=== PATIENT | male | born 1975 | race Caucasian/White ===

== ENCOUNTER → 2022-11-16 17:12 | Outpatient (CLI) | payer OTHER, SELFPAY ==
[2022-11-16 18:58] LABS: Influenza A - CEPHEID Flu A NEGATIVE (NEGATIVE); Influenza B - CEPHEID Flu B NEGATIVE (NEGATIVE); Respiratory Syncytial Virus Negative (Negative)
[2022-11-16 19:02] LABS: COVID-19 CEPHEID 4-PLEX PCR Negative (Negative)
== END ==
PROVIDERS: Visit Provider Student in an Organized Health Care Education/Training Program
DX: R05.9 Cough, unspecified (principal)
CPT/HCPCS: 0241U

== ENCOUNTER → 2022-11-16 17:22 | Outpatient (CLI) | payer OTHER, SELFPAY ==
--- NOTE | 2022-11-16 17:25 | DI.RAD.S_ITS ---
PROCEDURE: XR CHEST 2V INDICATIONS: chronic cough 1 yr TECHNIQUE: 2 views of the chest were acquired. COMPARISON: None. FINDINGS: Surgical changes and devices: None. Lungs and pleura: Lungs are clear. No pleural effusions or pneumothorax. Mediastinum: Mediastinal contours are normal. Heart size is normal. Bones and chest wall: No suspicious bony abnormalities. Soft tissues appear unremarkable. IMPRESSION: No acute cardiopulmonary findings Approved by: Bc Hopkins M.D. on 11/16/2022 at 17:25
== END ==
PROVIDERS: Referring Provider Student in an Organized Health Care Education/Training Program; Visit Provider Student in an Organized Health Care Education/Training Program
DX: R05.8 Other specified cough (principal)
CPT/HCPCS: 0241U; 71046

== ENCOUNTER 2025-05-29 15:58 | Emergency (ER) | payer OTHER, SELFPAY ==
[2025-05-29] VITALS (8 sets, daily range): BP systolic 126–174; BP diastolic 72–104; PULSE 84–107; RESP 16–20; O2SAT 92–96; BMI 39.5
--- NOTE | 2025-05-29 17:46 | EKG_ITS ---
[address] [address] Test Date: 2025-05-29 Pat Name: Ajay Acevedo Department: Room: Gender: Male [place] Operator: ARMANDO : 1975 Requested By: Order Number: [id number] Reading MD: Barrett Hutton Measurements Intervals [place]ougar Rate: 110 P: 12 FL: 140 QRS: -39 QRSD: 106 T: 69 QT: 316 QTc: 427 Interpretive Statements Sinus tachycardia Left axis deviation Left ventricular hypertrophy with repolarization abnormality ( R in aVL , Durand product ) Electronically Signed On 05-30-2025 17:27:35 PDT by Barrett Hutton
--- NOTE | 2025-05-29 18:03 | ED.BACK ---
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 He can not recall a specific injury but it seemed to worsen last he attempted to work but the pain worsened with movement. He is denying any radiation through to the chest, no neck pain, no radiation to his upper extremities. He has no history of any fractures or acute back problems except for the occasional lower back strain. He states he can reproduce the pain if he bends from [id number] or if he raises his arms above his head. If he turns his neck to either side he feels the pain as described. He describes it as sharp it does improve with ice no change with heat he states Tylenol ?takes the edge off? he took 1500 mg at 1:00 p.m. today. He has been doing this twice daily. He also took meloxicam 15 mg at 3:00 p.m. which she takes daily for arthritis in his knees. He denies any nausea, vomiting, difficulty breathing, chest pain, abdominal pain, no disruption during sleep, he is able to lay flat that is the most comfortable position. History is significant for type 2 diabetes, he has been on weekly Mounjaro for about 7 months and reports 45 lb weight loss with this medication. Per his Gracie, he was recently diagnosed with Bardet-Biedl Syndrome. Family history: Mother of kidney cancer. Daughter has some type of genetic kidney issue. He did a Cologuard this year and states it was normal. He does have an appointment with his doctor tomorrow Dr. Gale but states he could not wait until then. He admits to having white coat syndrome, does not like needles, states his heart rate and blood pressure usually elevated at medical facilities or doctor's offices. All other systems are reviewed and are negative. Related Data Previous Rx's ?Medication ?Instructions ?Recorded ciprofloxacin HCl 500 mg tablet 500 mg PO BID ##20 03/29/13 (Cipro) benzonatate 100 mg capsule 100 mg PO TID PRN cough 10 days 11/16/22 #30 caps Allergies Allergy/AdvReac Type Severity Reaction Status Date / Time No Known Drug Allergies Allergy Verified 05/29/25 16:17 Review of Systems <Casie Riley PA-C - Last Filed: 05/29/25 20:10> Review of Systems Narrative: All other systems are reviewed and are negative. Patient History <Casie Riley PA-C - Last Filed: 05/29/25 20:10> Social History Smoking Status: Never smoker Smoking Status: Never smoker Exam <Casie Riley PA-C - Last Filed: 05/29/25 20:10> Initial Vital Signs Initial Vital Signs: Vital Signs Pulse Rate 107 H 05/29/25 16:16 Respiratory Rate 16 05/29/25 16:16 Blood Pressure 159/104 H 05/29/25 16:16 Pulse Oximetry 96 05/29/25 16:16 Oxygen Delivery Method Room Air 05/29/25 16:16 Vital signs reviewed and are normal except for elevated blood pressure reading and slight tachycardia, this is rechecked his heart rate has come down to 82 radially, blood pressure also improved. Const General: cooperative, comfortable, well developed, well groomed and No acute distress Other: Smiling, seated, no distress. [facility] Head: normal to inspection, normocephalic and atraumatic Nose: external nose normal Face and sinus: normal facial exam and face symmetric Mouth: oral mucosae normal, lip normal and tongue normal Teeth and gingiva: dentition normal and gingiva normal Throat: posterior oropharynx normal Eyes General: Yes appearance normal, both eyes and all related structures Sclera: sclerae normal Neck Neck: normal visual inspection, full ROM, no meningeal signs, trachea midline and supple Lymphatic: No lymphadenopathy Other: Lateral rotation of the neck reproduces his pain in his thoracic region. Chest Chest: normal inspection of the chest and other (Barrel hoop test is negative.) Resp Effort & Inspection: normal respiratory effort and able to speak in complete sentences Auscultation: clear to auscultation bilaterally, no rales, no rhonchi and no wheezes Cardio Rate: regular rate Rhythm: regular rhythm GI Inspection: normal to inspection, no abdominal wall ecchymosis, no edema, non-distended, large pannus and obesity Percussion: normal to percussion Auscultation: normal bowel sounds Back/Spine/Pelvis Back: normal to inspection, No CVA tenderness, No ecchymosis, No erythema and No mass Thoracic/Lumbar Spine: thoraco-lumbar ROM normal (Reproducible pain with lateral bending and rotation.) Other: No focal bony midline tenderness or interspace tenderness of the cervical, thoracic, lumbar and sacral spine. He has tenderness in the paraspinous tissues of the thoracic region. Mildly tender upper trapezium with a couple of knots noted bilaterally, slight elevation left greater than right. Rhomboids are without tenderness. Pain with chest retraction and protraction to his mid- thoracic region without guarding. Skin General: no rashes or lesions noted, elasticity normal, turgor normal, No ecchymosis and No erythema Neuro General: patient alert, patient awake and patient oriented x3 DTR's: Rt Triceps: 1+, Lt Triceps: 1+, Rt Biceps: 1+ and Lt Biceps: 1+ Extrem Other: Full active shoulder ROM, pain is reproduced to his thoracic region with elevation and abduction against resistance. No focal deficits. <Shena Lucia MD - Last Filed: 05/29/25 23:57> Initial Vital Signs Initial Vital Signs: Vital Signs Pulse Rate 107 H 05/29/25 16:16 Respiratory Rate 16 05/29/25 16:16 Blood Pressure 159/104 H 05/29/25 16:16 Pulse Oximetry 96 05/29/25 16:16 Oxygen Delivery Method Room Air 05/29/25 16:16 Course <Casie Riley PA-C - Last Filed: 05/29/25 20:10> Orders Ordered: ED Orders 05/29/25 17:46 EKG-12 Lead Stat 05/29/25 18:00 Complete Blood Count AUTO DIFF Stat Comprehensive Metabolic Panel Stat Lipase Stat Magnesium Stat NT-proBNP (BNP-Adult 18+) Stat PTT Partial Thromboplastin Agus Stat Prothrombin Time INR Stat Troponin & CK Cardiac Panel Stat 05/29/25 18:32 CT chest abd pel w con Stat 05/29/25 21:48 Immunofixation, Serum Stat LDH [Lactate Dehydrogenase] Stat PSA [Prostate Specific Antigen] Stat Phosphorous Stat Protein Electrophoresis, Serum Stat Serum Free Light Chains [Free [place], LightChain SERUM] Stat Calcitonin [place] (Calcitonin,[place], Nasal [place]) 1 sprays NASAL DAILY ALISE Discontinued Medications Dexamethasone (Dexamethasone 10 Mg/Ml Vial) 10 mg IV NOW ONE Stop: 05/29/25 21:16 Last Admin: 05/29/25 21:49 Dose: 10 mg Hydromorphone HCl (Hydromorphone Hcl 0.5 Mg/0.5 Ml Syringe) 0.5 mg IV NOW ONE Stop: 05/29/25 19:33 Last Admin: 05/29/25 19:53 Dose: 0.5 mg Documented By: SARTHAK Hydromorphone HCl (Hydromorphone 1 Mg/Ml Syringe) 1 mg IV NOW ONE Stop: 05/29/25 20:35 Last Admin: 05/29/25 20:38 Dose: 1 mg Documented By: SARTHAK Hydromorphone HCl (Hydromorphone 1 Mg/Ml Syringe) 1 mg IV PRN ONE Stop: 05/29/25 23:12 Sodium Chloride (Normal Saline 0.9%) 1,000 mls @ 1,000 mls/hr IV BOLUS ONE Stop: 05/29/25 19:31 Last Infusion: 05/29/25 20:14 Dose: Infused Documented By: Admin: 05/29/25 18:52 Dose: 1,000 mls/hr Documented By: Furosemide 60 mg/ Sodium (Chloride) 56 mls @ 112 mls/hr IV NOW ONE Stop: 05/29/25 18:33 Last Infusion: 05/29/25 20:14 Dose: Infused Documented By: Admin: 05/29/25 18:52 Dose: 112 mls/hr Documented By: Zoledronic Acid 5 mg/ Sodium (Chloride) 106.25 mls @ 425 mls/hr IV NOW ONE Stop: 05/29/25 21:16 Last Titration: 05/29/25 23:11 Dose: 0 mls/hr Oxycodone/Acetaminophen (Oxycodone/Acetaminophen 5/325 Tablet) 2 tab PO NOW ONE Stop: 05/29/25 22:31 Last Admin: 05/29/25 22:44 Dose: 2 tab Oxycodone/Acetaminophen (Oxycodone/Acetaminophen 5/325 Tablet) 2 tab PO PRN ONE Stop: 05/29/25 23:12 Consultations Consultation #1: Discuss this patient with attending physician Dr. Lucia. Concern is for bony pathology due to his elevated calcium such as multiple myeloma. CT scan of the chest, abdomen and pelvis were ordered. Intravenous hydration with 1 L of normal saline with 60 mg IV Lasix. Dilaudid 0.5mg IV for pain given. Transfer of care to Dr. Lucia. Vital Signs Vital signs: Vital Signs - 8 hr 05/29/25 16:16 05/29/25 20:20 05/29/25 21:13 Pulse Rate 107 H 91 H 89 Respiratory Rate 16 18 Blood Pressure 159/104 H 127/72 Pulse Oximetry 96 93 Oxygen Delivery Method Room Air 05/29/25 21:25 05/29/25 21:25 05/29/25 21:30 Pulse Rate 84 101 H Respiratory Rate Blood Pressure 126/80 Pulse Oximetry 93 95 Oxygen Delivery Method 05/29/25 21:30 05/29/25 22:00 05/29/25 22:00 Pulse Rate 105 H Respiratory Rate 20 Blood Pressure 158/99 H 174/93 H Pulse Oximetry 95 Oxygen Delivery Method 05/29/25 22:30 05/29/25 22:30 Pulse Rate 98 H Respiratory Rate 20 Blood Pressure 153/89 H Pulse Oximetry 94 Oxygen Delivery Method Room Air <Shena Lucia MD - Last Filed: 05/29/25 23:57> Orders Ordered: ED Orders 05/29/25 17:46 EKG-12 Lead Stat 05/29/25 18:00 Complete Blood Count AUTO DIFF Stat Comprehensive Metabolic Panel Stat Lipase Stat Magnesium Stat NT-proBNP (BNP-Adult 18+) Stat PTT Partial Thromboplastin Agus Stat Prothrombin Time INR Stat Troponin & CK Cardiac Panel Stat 05/29/25 18:32 CT chest abd pel w con Stat 05/29/25 21:48 Immunofixation, Serum Stat LDH [Lactate Dehydrogenase] Stat PSA [Prostate Specific Antigen] Stat Phosphorous Stat Protein Electrophoresis, Serum Stat Serum Free Light Chains [Free [place], LightChain SERUM] Stat Calcitonin [place] (Calcitonin,[place], Nasal [place]) 1 sprays NASAL DAILY ALISE Discontinued Medications Dexamethasone (Dexamethasone 10 Mg/Ml Vial) 10 mg IV NOW ONE Stop: 05/29/25 21:16 Last Admin: 05/29/25 21:49 Dose: 10 mg Hydromorphone HCl (Hydromorphone Hcl 0.5 Mg/0.5 Ml Syringe) 0.5 mg IV NOW ONE Stop: 05/29/25 19:33 Last Admin: 05/29/25 19:53 Dose: 0.5 mg Documented By: SARTHAK Hydromorphone HCl (Hydromorphone 1 Mg/Ml Syringe) 1 mg IV NOW ONE Stop: 05/29/25 20:35 Last Admin: 05/29/25 20:38 Dose: 1 mg Documented By: SARTHAK Hydromorphone HCl (Hydromorphone 1 Mg/Ml Syringe) 1 mg IV PRN ONE Stop: 05/29/25 23:12 Sodium Chloride (Normal Saline 0.9%) 1,000 mls @ 1,000 mls/hr IV BOLUS ONE Stop: 05/29/25 19:31 Last Infusion: 05/29/25 20:14 Dose: Infused Documented By: Admin: 05/29/25 18:52 Dose: 1,000 mls/hr Documented By: Furosemide 60 mg/ Sodium (Chloride) 56 mls @ 112 mls/hr IV NOW ONE Stop: 05/29/25 18:33 Last Infusion: 05/29/25 20:14 Dose: Infused Documented By: Admin: 05/29/25 18:52 Dose: 112 mls/hr Documented By: Zoledronic Acid 5 mg/ Sodium (Chloride) 106.25 mls @ 425 mls/hr IV NOW ONE Stop: 05/29/25 21:16 Last Titration: 05/29/25 23:11 Dose: 0 mls/hr Oxycodone/Acetaminophen (Oxycodone/Acetaminophen 5/325 Tablet) 2 tab PO NOW ONE Stop: 05/29/25 22:31 Last Admin: 05/29/25 22:44 Dose: 2 tab Oxycodone/Acetaminophen (Oxycodone/Acetaminophen 5/325 Tablet) 2 tab PO PRN ONE Stop: 05/29/25 23:12 Vital Signs Vital signs: Vital Signs - 8 hr 05/29/25 16:16 05/29/25 20:20 05/29/25 21:13 Pulse Rate 107 H 91 H 89 Respiratory Rate 16 18 Blood Pressure 159/104 H 127/72 Pulse Oximetry 96 93 Oxygen Delivery Method Room Air 05/29/25 21:25 05/29/25 21:25 05/29/25 21:30 Pulse Rate 84 101 H Respiratory Rate Blood Pressure 126/80 Pulse Oximetry 93 95 Oxygen Delivery Method 05/29/25 21:30 05/29/25 22:00 05/29/25 22:00 Pulse Rate 105 H Respiratory Rate 20 Blood Pressure 158/99 H 174/93 H Pulse Oximetry 95 Oxygen Delivery Method 05/29/25 22:30 05/29/25 22:30 Pulse Rate 98 H Respiratory Rate 20 Blood Pressure 153/89 H Pulse Oximetry 94 Oxygen Delivery Method Room Air MDM - Back Pain/Injury <Casie Riley PA-C - Last Filed: 05/29/25 20:10> Lab Data Lab results narrative: Calcium elevated 16.7, WBC 11.4, BNP 2180, AST 62, Creatinine 1.51 GFR 56. 05/29/25 18:00 05/29/25 18:00 Labs: Lab Results 05/29/25 05/29/25 Range/Units 18:00 21:48 WBC 11.4 H (4.5-11.0) X10^3/uL RBC 5.47 (4.5-5.9) X10^6/uL Hgb 17.4 (13.5-17.5) g/dL Hct 51.1 (41-53) % MCV 93.4 (80-100) fL MCH 31.7 (26-34) PG MCHC 34.0 (30-36) % RDW 12.8 (11.6-14.8) % Plt Count 210 (150-400) X10^3/uL Neut % (Auto) 74.1 (50-75) % Lymph % (Auto) 16.6 L (25-40) % [place] % (Auto) 8.3 (3-14) % Eos % (Auto) 0.3 L (2-4) % Baso % (Auto) 0.7 (0-2) % Neut # (Auto) 8400 H (9341-1008) /uL Lymph # (Auto) 1900 (0542-5908) /uL [place] # (Auto) 900 (0-900) /uL Eos # (Auto) 0 (0-450) /uL Baso # (Auto) 100 (0-100) /uL PT 12.0 (9.4-12.5) SECONDS INR 1.1 (0.9-1.3) APTT 29 (25.1-36.5) SECONDS Sodium 134 L (137-145) mmol/L Potassium 3.9 (3.4-5.1) mmol/L Chloride 96 L (98-107) mmol/L Carbon Dioxide 29 (22-32) mmol/L BUN 26 H (9-20) mg/dL Creatinine 1.51 H (0.66-1.25) mg/dL Estimated GFR 56 L (>60) mL/min BUN/Creatinine Ratio 17.2 (6-22) Glucose 123 H (70-99) mg/dL Calcium 16.7 H* (8.4-10.2) mg/dL Phosphorus 4.3 (2.5-4.5) mg/dL Magnesium 1.6 (1.6-2.3) mg/dL Total Bilirubin 0.9 (0.2-1.3) mg/dL AST 62 H (17-59) IU/L ALT 45 (<50) IU/L Alkaline Phosphatase 82 (38-126) U/L Lactate Dehydrogenase 247 H (120-246) U/L Total Creatine Kinase 44 L (55-170) U/L Troponin I 0.028 (0.01-0.034) ng/mL NT-Pro-B Natriuret Pep 2180 H (<125) pg/mL Total Protein 9.3 H (6.3-8.2) g/dL Albumin 4.7 (3.5-5.0) g/dL Globulin 4.6 H (1.7-4.1) g/dL Albumin/Globulin Ratio 1.0 (1.0-2.8) Lipase 72 (23-300) U/L Prostate Specific Ag 1.81 (0.10-4.00) ng/mL Imaging Data CT scan chest, abd/pelvis: My Impression: Deferred to radiologist's interpretation below. Radiologist's Impression: PROCEDURE: CT CHEST ABD PEL W CON INDICATIONS: T6 pain, no trauma, elevated Calcium 16.7, r/o myeloma TECHNIQUE: After the administration of intravenous contrast, 5 mm thick sections acquired from the lung apices to the symphysis. 5 mm coronal and sagittal reformats were performed, with additional 7 mm MIP reformats through the lungs. For radiation dose reduction, the following was used: automated exposure control, adjustment of mA and/or kV according to patient size. COMPARISON: None. FINDINGS: Image quality: Excellent. CHEST: Lower Neck: No enlarged lymph nodes. Thyroid: No thyroid nodules which require sonographic follow up, per consensus guidelines. Axillae: No enlarged lymph nodes. Chest Wall: Unremarkable. Lungs and Pleura: No pneumothorax or pleural effusions. Left lower lobe nodule measuring 5 mm (3/213). Heart: Heart size is normal. No pericardial effusion. Thoracic Vessels: The aorta and pulmonary arteries demonstrate normal size. Mediastinum and [place]: No enlarged lymph nodes. Esophagus: No wall thickening. No hiatal hernia. ABDOMEN: Liver: No solid mass. Hepatic steatosis. Gallbladder: No radiopaque gallstones or wall thickening. Biliary ducts: No biliary dilation. Pancreas: No ductal dilation. Spleen: Size is within normal limits. Adrenal Glands: No adrenal nodules. Kidneys and Ureters: No hydronephrosis. No solid mass. No complex renal cystic lesion which requires follow up. Stomach and Bowel: Normal colonic caliber, without significant wall thickening. Diverticulosis without evidence of acute diverticulitis. Peritoneum: No abnormal intraperitoneal fluid. No free air. Ventral Wall: Moderate fat containing umbilical hernia. Abdominal Nodes: No retroperitoneal or mesenteric adenopathy by size criteria. Vessels: Aorta and inferior vena cava are normal in size. PELVIS: Pelvic Organs: Unremarkable. Bladder: No bladder wall thickening, accounting for underdistention. Pelvic Nodes: No enlarged lymph nodes. Miscellaneous: No inguinal hernias are seen. Bones: Lytic destructive lesion of the right 2nd lateral rib with soft tissue component. Smaller lesion involving the right 4th anterolateral rib. Left 7th lateral rib lytic destructive lesion with expansion. Lytic expansile lesion involving the left L5 transverse process. Right T11 transverse process lytic lesion. Mild compression deformity of T4, may be pathologic. IMPRESSION: 1. Several osseous lesions as described above. Metastatic disease versus multiple myeloma are in the differential. 2. Left lower lobe pulmonary nodule measuring 5 mm is nonspecific, attention on follow-up imaging. 3. No enlarged lymph nodes are identified. 4. Please see above for additional findings Approved by: Tucker Kenney M.D. on 05/29/2025 at 19:43 ECG Data Interpretation: Sinus tachycardia ventricular rate of 110 per minute, machine interpretation stating left axis deviation left ventricular hypertrophy. No ST segment abnormalities, no P or T-wave abnormalities. MDM Narrative Medical decision making narrative: Discussed this patient with Dr. Lucia. Noted to have elevated calcium 16.7 with mid-thoracic back pain x 2 weeks, non-radiating, no history of trauma. Pain improved with ice and acetaminophen. ECG, no acute findings. CT chest/abd/pelvis reveal multiple lytic lesions concern for metastatic cancer versus multiple myeloma, transfer of care to Dr. Lucia at this time. <Shena Lucia MD - Last Filed: 05/29/25 23:57> Lab Data Labs: Lab Results 05/29/25 05/29/25 Range/Units 18:00 21:48 WBC 11.4 H (4.5-11.0) X10^3/uL RBC 5.47 (4.5-5.9) X10^6/uL Hgb 17.4 (13.5-17.5) g/dL Hct 51.1 (41-53) % MCV 93.4 (80-100) fL MCH 31.7 (26-34) PG MCHC 34.0 (30-36) % RDW 12.8 (11.6-14.8) % Plt Count 210 (150-400) X10^3/uL Neut % (Auto) 74.1 (50-75) % Lymph % (Auto) 16.6 L (25-40) % [place] % (Auto) 8.3 (3-14) % Eos % (Auto) 0.3 L (2-4) % Baso % (Auto) 0.7 (0-2) % Neut # (Auto) 8400 H (5559-9571) /uL Lymph # (Auto) 1900 (3557-3433) /uL [place] # (Auto) 900 (0-900) /uL Eos # (Auto) 0 (0-450) /uL Baso # (Auto) 100 (0-100) /uL PT 12.0 (9.4-12.5) SECONDS INR 1.1 (0.9-1.3) APTT 29 (25.1-36.5) SECONDS Sodium 134 L (137-145) mmol/L Potassium 3.9 (3.4-5.1) mmol/L Chloride 96 L (98-107) mmol/L Carbon Dioxide 29 (22-32) mmol/L BUN 26 H (9-20) mg/dL Creatinine 1.51 H (0.66-1.25) mg/dL Estimated GFR 56 L (>60) mL/min BUN/Creatinine Ratio 17.2 (6-22) Glucose 123 H (70-99) mg/dL Calcium 16.7 H* (8.4-10.2) mg/dL Phosphorus 4.3 (2.5-4.5) mg/dL Magnesium 1.6 (1.6-2.3) mg/dL Total Bilirubin 0.9 (0.2-1.3) mg/dL AST 62 H (17-59) IU/L ALT 45 (<50) IU/L Alkaline Phosphatase 82 (38-126) U/L Lactate Dehydrogenase 247 H (120-246) U/L Total Creatine Kinase 44 L (55-170) U/L Troponin I 0.028 (0.01-0.034) ng/mL NT-Pro-B Natriuret Pep 2180 H (<125) pg/mL Total Protein 9.3 H (6.3-8.2) g/dL Albumin 4.7 (3.5-5.0) g/dL Globulin 4.6 H (1.7-4.1) g/dL Albumin/Globulin Ratio 1.0 (1.0-2.8) Lipase 72 (23-300) U/L Prostate Specific Ag 1.81 (0.10-4.00) ng/mL MDM Narrative Medical decision making narrative: Discussed this patient with Dr. Lucia. Noted to have elevated calcium 16.7 with mid-thoracic back pain x 2 weeks, non-radiating, no history of trauma. Pain improved with ice and acetaminophen. ECG, no acute findings. CT chest/abd/pelvis reveal multiple lytic lesions concern for metastatic cancer versus multiple myeloma, transfer of care to Dr. Lucia at this time. Dr Lucia Chart is reviewed, labs reviewed, CT scan reviewed. Patient independently evaluated Presents with mid scapular back pain, cardiac workup shows calcium of 16.7 with normal cardiac enzymes, and CT scan of the chest abdomen and pelvis that is unfortunately shows Lytic destructive lesion of the right 2nd lateral rib with soft tissue component. Smaller lesion involving the right 4th anterolateral rib. Left 7th lateral rib lytic destructive lesion with expansion. Lytic expansile lesion involving the left L5 transverse process. Right T11 transverse process lytic lesion. Mild compression deformity of T4, may be pathologic. Lab abnormalities indicate mild leukocytosis at 11.4 Chemistries are notable for creatinine elevated at 1.5, Calcium significantly elevated at 16.7 ProBNP is elevated at 2180 Troponin is undetectable Globulin and total protein are both elevated AST is minimally elevated with normal bilirubin ALT and alk-phos Differential for lytic bone abnormalities with significant hypercalcemia includes primary malignant bone tumors, bone metastases, multiple myeloma. No obvious primary cancer source was appreciated on CT scan of the chest abdomen and pelvis aside from a less than 5 mm lung nodule that was not described as spiculated. Consultation with Dr. Nelson, oncologist with [facility]. Recommendations for additional workup added. Unfortunately [facility] does not have beds available for inpatient treatment at this time. Extensive discussion with the patient and his regarding findings concerns and need for further workup. Discussion with at [facility]. Agrees to consult when patient has been transfer and admitted by the hospitalist service Discussed with , admitting hospitalist. Accepts transfer Again reviewed with patient and his family. He was just given 2 Percocet see if this will better control his pain. We will re-evaluate pain levels prior to transport, bls, to administer additional pain medication is required Impression: 50-year-old gentleman with hypercalcemia, leading to CT scans with multiple lytic lesions of the ribs and vertebra, lab workup initiated, we will need admission for treatment of his hypercalcemia, uncontrolled cancer-related pain, oncology consultation, expedited cancer workup, discussion of radiation therapy for pain control with a T4 pathologic compression fracture and hopefully expedited care plan for his neoplastic process. 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
[2025-05-29 18:09] LABS: Add Manual Diff / Slide Review NO; Hematocrit 51.1 % (41-53); Hemoglobin 17.4 g/dL (13.5-17.5); Lymphocytes Absolute Auto 1900 /uL (1100-4500); Mean Corpuscular HGB Conc 34.0 % (30-36); Mean Corpuscular Hemoglobin 31.7 PG (26-34); Mean Corpuscular Volume 93.4 fL (80-100); Platelet Count 210 X10^3/uL (150-400)
[2025-05-29 18:14] LABS: INR 1.1 (0.9-1.3); Prothrombin Time 12.0 SECONDS (9.4-12.5)
[2025-05-29 18:17] LABS: PTT Partial Thromboplastin Tim 29 SECONDS (25.1-36.5)
[2025-05-29 18:19] LABS: Alanine Aminotransferase 45 IU/L (<50); Albumin 4.7 g/dL (3.5-5.0); Albumin Globulin Ratio 1.0 (1.0-2.8); Alkaline Phosphatase 82 U/L (38-126); Blood Urea Nitrogen 26 mg/dL (9-20); Carbon Dioxide 29 mmol/L (22-32); Chloride 96 mmol/L (98-107); Creatine Kinase 44 U/L (55-170); Estimated Glomerular Filt Rate 56 mL/min (>60); Globulin 4.6 g/dL (1.7-4.1); Glucose 123 mg/dL (70-99); Lipase 72 U/L (23-300); Magnesium 1.6 mg/dL (1.6-2.3); Potassium 3.9 mmol/L (3.4-5.1); Sodium 134 mmol/L (137-145); Total Protein 9.3 g/dL (6.3-8.2)
[2025-05-29 18:25] LABS: HEMOLYSIS 41 (0-50)
[2025-05-29 18:30] LABS: NT-proBNP (BNP-Adult 18+) 2180 pg/mL (<125); Troponin I 0.028 ng/mL (0.01-0.034)
[2025-05-29 18:31] LABS: Calcium 16.7 mg/dL (8.4-10.2)
--- NOTE | 2025-05-29 18:32 | DI.CT.S_ITS ---
PROCEDURE: CT CHEST ABD PEL W CON INDICATIONS: T6 pain, no trauma, elevated Calcium 16.7, r/o myeloma TECHNIQUE: After the administration of intravenous contrast, 5 mm thick sections acquired from the lung apices to the symphysis. 5 mm coronal and sagittal reformats were performed, with additional 7 mm MIP reformats through the lungs. For radiation dose reduction, the following was used: automated exposure control, adjustment of mA and/or kV according to patient size. COMPARISON: None. FINDINGS: Image quality: Excellent. CHEST: Lower Neck: No enlarged lymph nodes. Thyroid: No thyroid nodules which require sonographic follow up, per consensus guidelines. Axillae: No enlarged lymph nodes. Chest Wall: Unremarkable. Lungs and Pleura: No pneumothorax or pleural effusions. Left lower lobe nodule measuring 5 mm (3/213). Heart: Heart size is normal. No pericardial effusion. Thoracic Vessels: The aorta and pulmonary arteries demonstrate normal size. Mediastinum and Tangela: No enlarged lymph nodes. Esophagus: No wall thickening. No hiatal hernia. ABDOMEN: Liver: No solid mass. Hepatic steatosis. Gallbladder: No radiopaque gallstones or wall thickening. Biliary ducts: No biliary dilation. Pancreas: No ductal dilation. Spleen: Size is within normal limits. Adrenal Glands: No adrenal nodules. Kidneys and Ureters: No hydronephrosis. No solid mass. No complex renal cystic lesion which requires follow up. Stomach and Bowel: Normal colonic caliber, without significant wall thickening. Diverticulosis without evidence of acute diverticulitis. Peritoneum: No abnormal intraperitoneal fluid. No free air. Ventral Wall: Moderate fat containing umbilical hernia. Abdominal Nodes: No retroperitoneal or mesenteric adenopathy by size criteria. Vessels: Aorta and inferior vena cava are normal in size. PELVIS: Pelvic Organs: Unremarkable. Bladder: No bladder wall thickening, accounting for underdistention. Pelvic Nodes: No enlarged lymph nodes. Miscellaneous: No inguinal hernias are seen. Bones: Lytic destructive lesion of the right 2nd lateral rib with soft tissue component. Smaller lesion involving the right 4th anterolateral rib. Left 7th lateral rib lytic destructive lesion with expansion. Lytic expansile lesion involving the left L5 transverse process. Right T11 transverse process lytic lesion. Mild compression deformity of T4, may be pathologic. IMPRESSION: 1. Several osseous lesions as described above. Metastatic disease versus multiple myeloma are in the differential. 2. Left lower lobe pulmonary nodule measuring 5 mm is nonspecific, attention on follow-up imaging. 3. No enlarged lymph nodes are identified. 4. Please see above for additional findings Approved by: Tucker Kenney M.D. on 05/29/2025 at 19:43
[2025-05-29] MEDS: SODIUM CHLORIDE 0.9% 1,000 ML 1000 ML IV (18:52)
[2025-05-29] MEDS: FUROSEMIDE 60 MG in SODIUM CHLORIDE 0.9% 50 ML 112 MG IV (18:52)
[2025-05-29 22:05] LABS: Phosphorous 4.3 mg/dL (2.5-4.5)
[2025-05-29] MEDS: ZOLEDRONIC ACID 5 MG in SODIUM CHLORIDE 0.9% 100 ML 425 MG IV (22:44)
[2025-05-29 22:45] LABS: Prostate Specific Antigen 1.81 ng/mL (0.10-4.00)
[2025-05-30] VITALS: PULSE 94; O2SAT 92
[2025-05-30 00:30] VITALS: PULSE 92; RESP 16; O2SAT 91
[2025-05-30 01:00] VITALS: PULSE 95; O2SAT 92
[2025-05-30 01:30] VITALS: PULSE 89; O2SAT 91
[2025-05-30 01:44] VITALS: BP 142/88; PULSE 96; RESP 20; O2SAT 93
[2025-06-01 15:12] LABS: Albumin 3.5 g/dL (2.9-4.4); Alpha-1-Globulin 0.3 g/dL (0.0-0.4); Alpha-2-Globulin 0.8 g/dL (0.4-1.0); Gamma Globulin 2.0 g/dL (0.4-1.8); Immunoglobulin G,Serum 2050 mg/dL (603-1613)
[2025-06-01 16:08] LABS: Free Kappa Lt Chains, Serum 591.0 mg/L (3.3-19.4); Free Lambda Lt Chains,Serum 6.4 mg/L (5.7-26.3)
== END 2025-05-30 01:49 | disposition short-term general hospital (02) ==
PROVIDERS: Emergency Provider Emergency Medicine
DX: E83.52 Hypercalcemia (principal); M48.54XA Collapsed vertebra, not elsewhere classified, thoracic region, initial encounter for fracture; Q87.83 Bardet-Biedl syndrome; R00.0 Tachycardia, unspecified; R52 Pain, unspecified; M89.8X9 Other specified disorders of bone, unspecified site
CPT/HCPCS: 36415; 71260; 74177; 80053; 82310; 82397; 82550; 82784; 83615; 83690; 83735; 83880; 83883; 83970; 84100; 84153; 84155; 84165; 84484; 85025; 85610; 85730; 86334; 93005; 96365; 96367; 96375; 96376; 99284; 99285; J1100; J1171; J1938; J3489; Q9967